=== PATIENT | male | born 1990 | race Caucasian/White ===

== ENCOUNTER 2020-06-22 08:44 | Outpatient (CLI) | payer OTHER | END 2020-06-22 10:12 | disposition home or self-care (01) | LOC: LAB 08:44 | DX: M25.50 Pain in unspecified joint (principal); R73.9 Hyperglycemia, unspecified; E83.52 Hypercalcemia; E83.41 Hypermagnesemia; E83.39 Other disorders of phosphorus metabolism; M32.8 Other forms of systemic lupus erythematosus; M35.00 Sjogren syndrome, unspecified; M79.10 Myalgia, unspecified site; M06.4 Inflammatory polyarthropathy; H04.123 Dry eye syndrome of bilateral lacrimal glands ==

== ENCOUNTER 2020-06-29 14:38 | Outpatient (CLI) | payer OTHER | END 2020-06-29 16:04 | disposition home or self-care (01) | LOC: LAB 14:38 | DX: R73.09 Other abnormal glucose (principal); E83.52 Hypercalcemia; E83.41 Hypermagnesemia; M35.00 Sjogren syndrome, unspecified; M32.8 Other forms of systemic lupus erythematosus; H04.123 Dry eye syndrome of bilateral lacrimal glands ==

== ENCOUNTER 2021-04-18 09:55 | Outpatient (CLI) | payer OTHER | END 2021-04-18 15:00 | disposition home or self-care (01) | LOC: LAB 09:55 | DX: Z03.818 Encounter for observation for suspected exposure to other biological agents ruled out (principal) ==

== ENCOUNTER 2023-12-16 14:31 | Outpatient (CLI) | payer OTHER | END 2023-12-16 14:43 | disposition home or self-care (01) | LOC: RAD 14:31 | PROVIDERS: ATTEND General Practice | DX: J18.9 Pneumonia, unspecified organism (principal) ==